=== PATIENT | male | born 1940 | race African-American/Black ===

== ENCOUNTER 2020-03-11 17:51 | Emergency (ER) | payer OTHER ==
[~2020-03-11] VITALS: Ht 175.3 cm; Wt 95.3 kg
[2020-03-11] MEDS ORDERED: ZYLOPRIM100 M1 (18:00)
[2020-03-11] MEDS ORDERED: ADALAT CC90 MG (18:00)
[2020-03-11] MEDS ORDERED: ATACAND16 MG (18:00)
[2020-03-11] MEDS ORDERED: ATORVASTATIN CA40 MG (18:01)
[2020-03-11] MEDS ORDERED: SPIRONOLACTONE25 MG (18:01)
== END 2020-03-12 09:06 | disposition home or self-care (01) ==
LOC: ER 17:51
DX: K70.31 Alcoholic cirrhosis of liver with ascites (principal); K76.89 Other specified diseases of liver; M10.062 Idiopathic gout, left knee; M10.061 Idiopathic gout, right knee; E78.49 Other hyperlipidemia; I10 Essential (primary) hypertension; R60.0 Localized edema; R53.1 Weakness; N50.89 Other specified disorders of the male genital organs

== ENCOUNTER 2022-04-18 10:14 | Outpatient (CLI) | payer OTHER ==
[~2022-04-18 10:14] MED LIST: ADALAT CC90 MG; ATACAND16 MG; ATORVASTATIN CA40 MG; SPIRONOLACTONE25 MG; ZYLOPRIM100 M1
== END 2022-04-18 10:30 | disposition home or self-care (01) ==
LOC: PPH VACUNA 10:14
PROVIDERS: ATTEND Emergency Medicine Pediatric Emergency Medicine
DX: Z23 Encounter for immunization (principal)